=== PATIENT | female | born 1940 | race Caucasian/White ===

== ENCOUNTER 2023-09-11 11:52 | Emergency (ER) | payer MEDICAID ==
[~2023-09-11] VITALS: Ht 152.4 cm; Wt 60.0 kg
[2023-09-11 12:12] VITALS: O2SAT 98
[2023-09-11] MEDS ORDERED: ACET325T52 MT (13:36)
[2023-09-11] MEDS ORDERED: TRAM50TA3 MT (13:36)
[2023-09-11] MEDS: TRAMADOL 50MG TABLET PO ONE (15:03)
[2023-09-11 16:20] VITALS: BP 141/61; PULSE 70; RESP 19; TEMP 98
== END 2023-09-11 16:22 | disposition home or self-care (01) ==
LOC: ER 13:20
DX: M17.11 Unilateral primary osteoarthritis, right knee (principal); E11.9 Type 2 diabetes mellitus without complications; E78.00 Pure hypercholesterolemia, unspecified; I10 Essential (primary) hypertension; Z90.710 Acquired absence of both cervix and uterus
CPT/HCPCS: 73562; 99283